=== PATIENT | female | born 1995 | race Two or more races ===

== ENCOUNTER 2017-02-16 17:08 | Observation (INO) | payer MEDICAID, OTHER ==
[2017-02-16] MEDS ORDERED: ONDANSETRON 4 MG/2 ML VIAL IVP ONE (17:45)
[2017-02-16] MEDS ORDERED: LR 1,000 ML IV SCH (18:00)
[2017-02-16 18:12] LABS: PLATELET COUNT 272 10^3/uL (150-400)
--- NOTE | 2017-02-16 19:11 | PDGENHP ---
History and Physical - Chief Complaint nausea, vomiting - History of Present Illness 21 yo G1 female @ 17.0 weeks gestation (EDC 07/28/17 by 10.0 week scan) presents with nausea and vomiting. She is unable to keep food down. She has been vomiting for a couple of days. She has required IVF hydration at ED several times during current for nausea and vomiting. Although she admits to using THC/marijuana prior to knowing she was she denies both excessive or any cannabis use since she knew she was . She currently takes Diclegis at home but has previously used B6, Zantac, Protonix Phenergan suppositories and PO Zofran. She has lost 7 pounds per /ACOG record. Her past medical history is unremarkable. has been complicated by GERD , hyperemesis and epigastric pain (especially during periods exacerbated by vomiting) but otherwise no problems. O+ / Antibody Screen Neg / RPR NR / Rubella NON-IMMUNE / HBsAg Neg / HIV Neg / Alpha Thalessemia Carrier / Pap WNL / Toxo IgG/IgM Neg / Initial Urine Drug Screen NEGATIVE / Pap WNL / GC Neg/Neg / cfDNA Negative, XX. History Information - Allergies/Home Medication List Allergies/Adverse Reactions: No Known Allergies Allergy (Unverified 02/16/17 17:23) I have personally reviewed and updated: family history, medical history, social history, surgical history - Past Medical History no pertinent PMH Additional medical history: RSV as a 3 month-old infant - Surgical History Reports: no pertinent surgical hx - Family History Additional family history: alcohol and drug abuse (brother and mother) - Social History Smoking Status: Former smoker Alcohol Use: Other (not since ) Drug Use: Marijuana Additional social history: not since Review of Systems Review of Systems: ROS: 10pt was reviewed & negative except for what was stated in HPI & below Physical Exam Physical Exam: Constitutional: uncomfortable Ears, Nose, Mouth, Throat: dry mucous membranes Cardiovascular: regular rate and rhythym, pulses symmetric bilaterally Respiratory: no respiratory distress, no rales or rhonchi, clear to auscultation Gastrointestinal: normoactive bowel sounds, soft, non-tender abdomen, other ( gravid, size less than dates) Musculoskeletal: generalized weakness Neurologic: AAOx3, sensation intact bilaterally Psychiatric: interacting appropriately, flat affect Lab Data & Imaging Review 02/16/17 17:50 02/16/17 17:50 WBC 14.04 10^3/uL (3.80-9.50) H 02/16/17 17:50 RBC 5.02 10^6/uL (4.18-5.33) 02/16/17 17:50 Hgb 13.6 g/dL (12.6-16.3) 02/16/17 17:50 Hct 41.2 % (38.0-47.0) 02/16/17 17:50 MCV 82.1 fL (81.5-99.8) 02/16/17 17:50 MCH 27.1 pg (27.9-34.1) L 02/16/17 17:50 MCHC 33.0 g/dL (32.4-36.7) 02/16/17 17:50 RDW 15.0 % (11.5-15.2) 02/16/17 17:50 Plt Count 272 10^3/uL (150-400) 02/16/17 17:50 MPV 10.3 fL (8.7-11.7) 02/16/17 17:50 Neut % (Auto) 86.1 % (39.3-74.2) H 02/16/17 17:50 Lymph % (Auto) 10.4 % (15.0-45.0) L 02/16/17 17:50 [place] % (Auto) 3.0 % (4.5-13.0) L 02/16/17 17:50 Eos % (Auto) 0.1 % (0.6-7.6) L 02/16/17 17:50 Baso % (Auto) 0.1 % (0.3-1.7) L 02/16/17 17:50 Nucleat RBC Rel Count 0.0 % (0.0-0.2) 02/16/17 17:50 Absolute Neuts (auto) 12.09 10^3/uL (1.70-6.50) H 02/16/17 17:50 Absolute Lymphs (auto) 1.46 10^3/uL (1.00-3.00) 02/16/17 17:50 Absolute Monos (auto) 0.42 10^3/uL (0.30-0.80) 02/16/17 17:50 Absolute Eos (auto) 0.01 10^3/uL (0.03-0.40) L 02/16/17 17:50 Absolute Basos (auto) 0.02 10^3/uL (0.02-0.10) 02/16/17 17:50 Absolute Nucleated RBC 0.00 10^3/uL (0-0.01) 02/16/17 17:50 Immature Gran % 0.3 % (0.0-1.1) 02/16/17 17:50 Immature Gran # 0.04 10^3/uL (0.00-0.10) 02/16/17 17:50 Sodium 137 mEq/L (134-144) 02/16/17 17:50 Potassium 4.1 mEq/L (3.5-5.2) 02/16/17 17:50 Chloride 102 mEq/L (97-110) 02/16/17 17:50 Carbon Dioxide 18 mEq/l (22-31) L 02/16/17 17:50 Anion Gap 17 mEq/L (8-16) H 02/16/17 17:50 BUN 4 mg/dL (7-23) L 02/16/17 17:50 Creatinine 0.5 mg/dL (0.6-1.0) L 02/16/17 17:50 Estimated GFR > 60 02/16/17 17:50 Glucose 129 mg/dL (70-100) H 02/16/17 17:50 Calcium 10.1 mg/dL (8.5-10.4) 02/16/17 17:50 Total Bilirubin 0.4 mg/dL (0.1-1.4) 02/16/17 17:50 AST 30 IU/L (14-46) 02/16/17 17:50 ALT 51 IU/L (9-52) 02/16/17 17:50 Alkaline Phosphatase 74 IU/L (38-126) 02/16/17 17:50 Total Protein 7.3 g/dL (6.3-8.2) 02/16/17 17:50 Albumin 4.2 g/dL (3.5-5.0) 02/16/17 17:50 TSH 0.071 uIU/mL (0.465-4.680) L 02/16/17 17:50 Assessment & Plan Assessment: 21 year-old G1 female @ 17 weeks gestation with hyperemesis gravidarum and epigastric pain. Plan: 1. Admit for observation. 2. IVF hydration, replace electrolytes as needed. 3. Obtain lab work. 4. Antiemetics. 5. Monitor epigastric pain, further work-up if persists or does not resolve. 6. Advance diet as tolerated.
[2017-02-16] MEDS: PROMETHAZINE HCL 25 MG/ML INJ IVP PRN (19:51)
[2017-02-16] MEDS ORDERED: METOCLOPRAMIDE 10 MG/2 ML VIAL ONE (21:52)
[2017-02-16] MEDS: D5W LR 1,000 ML IV SCH (21:58)
[2017-02-16] MEDS: METOCLOPRAMIDE 10 MG/2 ML VIAL IVP SCH (23:24)
[2017-02-17] MEDS: PROMETHAZINE HCL 25 MG/ML INJ IVP PRN ×2 (04:24→12:43)
[2017-02-17] MEDS: D5W LR 1,000 ML IV SCH ×2 (04:33→12:43)
[2017-02-17] MEDS: METOCLOPRAMIDE 10 MG/2 ML VIAL IVP SCH ×3 (06:29→14:05)
[2017-02-17] MEDS ORDERED: PRENATAL VIT 1 EACH TAB PO SCH (08:00)
--- NOTE | 2017-02-17 08:59 | SOAPPROG ---
SOAP Progress Note Assessment/Plan: Assessment: 21 yo G1 @ 17.1 weeks with hyperemesis gravidarum and epigastric pain. Alternated between vomiting and sleep overnight. Plan: Continue supportive care and encourage rest. Abdominal US for epigastric pain. Advance diet and activity as tolerated. 02/17/17 08:56 Subjective: Resting in bed. Says epigastric pain persists. Vomiting continues in spurts and then she has periods (1-2 hours) where she can sleep. She is cannot tolerate food or clears. Objective: Vital Signs Temp Pulse Resp BP Pulse Ox 37.2 C 95 14 125/79 H 97 02/17/17 04:30 02/17/17 04:30 02/17/17 04:30 02/17/17 04:30 02/17/17 04:30 Laboratory Results 02/16/17 17:50 02/16/17 17:50 NAD, resting HENT: moist mucous membranes Lungs: clear Heart: RRR Abdomen: soft, bowel sounds present, TTP in epigastrium and RUQ Extremities: no edema ICD10 Worksheet Patient Problems: Problems Problem Status Onset Hyperemesis gravidarum Acute - ICD10 Problem Qualifiers (1) Hyperemesis gravidarum
[2017-02-17] MEDS ORDERED: FAMOTIDINE 20 MG/NACL 50 ML IV SCH (09:45)
--- NOTE | 2017-02-17 11:52 | SOAPPROG ---
SOAP Progress Note Assessment/Plan: Assessment: 21 yo G1PO @ 17 1/7 weeks with hyperemesis gravidarum and epigastric pain Plan: Pt is stable at this time; her n/v has improved and pt is michael crackers Epigastric pain is improved after Pepcid; Abd u/s is wnl Continue supportive care Plan for d/c home later today if michael po 02/17/17 11:53 Subjective: Pt states n/v is improved and she is tolerating crackers. She has been up to shower and feels better. Denies any spotting or VB. Denies any cramping. Objective: Vital Signs Temp Pulse Resp BP Pulse Ox 37 C 109 H 18 127/67 H 98 02/17/17 09:41 02/17/17 09:41 02/17/17 09:41 02/17/17 09:41 02/17/17 09:41 Laboratory Results 02/16/17 17:50 02/16/17 17:50 02/16/17 02/17/17 02/18/17 05:59 05:59 05:59 Output Total 0 Balance 0 Physical Exam - Physical Exam General Appearance: WD/WN, alert, no apparent distress Abdomen: non-tender, soft Pelvic Exam: deferred Neuro/Psych: alert, normal mood/affect, oriented x 3 ICD10 Worksheet Patient Problems: Problems Problem Status Onset Hyperemesis gravidarum Acute
[2017-02-17 12:50] VITALS: BP 116/62; PULSE 83; RESP 16; TEMP 99; O2SAT 99
== END 2017-02-17 16:05 | disposition home or self-care (01) ==
LOC: FLD 17:08
PROVIDERS: ADMIT Advanced Practice Midwife; ATTEND Obstetrics & Gynecology
DX: O21.0 Mild hyperemesis gravidarum (principal); O99.612 Diseases of the digestive system complicating pregnancy, second trimester; K21.9 Gastro-esophageal reflux disease without esophagitis; F12.10 Cannabis abuse, uncomplicated; Z3A.17 17 weeks gestation of pregnancy
CPT/HCPCS: 76705; G0378; 80307; 84481-90; G0480; J1200; J2405; J2550; J2765

== ENCOUNTER 2017-02-18 19:51 | Inpatient (IN) | payer MEDICAID ==
[2017-02-18] MEDS ORDERED: PROMETHAZINE HCL 25 MG/ML INJ IVP PRN (20:08)
--- NOTE | 2017-02-18 20:21 | PDGENHP ---
History and Physical - Chief Complaint nausea, vomiting - History of Present Illness 21 yo G1 female @ 17.0 weeks gestation (EDC 07/28/17 by 10.0 week scan) presents with nausea and vomiting. She is unable to keep food down. She has been vomiting for a couple of days. She has required IVF hydration at ED several times during current for nausea and vomiting. She was admitted on Nov and was given IV antiemetics, IVF hydration, and responded positively. She called in this evening saying that although she was just recently discharged home she cannot keep anything down and is vomiting every hour. Although she admits to using THC/marijuana prior to knowing she was she denies both excessive or any cannabis use since she knew she was . She currently takes Phenergan suppositories Diclegis at home but has previously used B6, Zantac, Protonix and PO Zofran. She has lost 7 pounds per /ACOG record. Her past medical history is unremarkable. has been complicated by GERD , hyperemesis and epigastric pain (especially during periods exacerbated by vomiting) but otherwise no problems. O+ / Antibody Screen Neg / RPR NR / Rubella NON-IMMUNE / HBsAg Neg / HIV Neg / Alpha Thalessemia Carrier / Pap WNL / Toxo IgG/IgM Neg / Initial Urine Drug Screen NEGATIVE / Pap WNL / GC Neg/Neg / cfDNA Negative, XX. History Information - Allergies/Home Medication List Allergies/Adverse Reactions: No Known Allergies Allergy (Unverified 02/16/17 17:23) Home Medications: Zofran 02/01/17 [Last Taken Unknown] I have personally reviewed and updated: family history, medical history, social history, surgical history - Past Medical History no pertinent PMH Additional medical history: RSV as a 3 month-old - Surgical History Reports: no pertinent surgical hx - Family History Additional family history: alcohol and drug abuse (brother and mother) - Social History Smoking Status: Former smoker Additional social history: not since Review of Systems Review of Systems: ROS: 10pt was reviewed & negative except for what was stated in HPI & below Physical Exam Physical Exam: Constitutional: uncomfortable Ears, Nose, Mouth, Throat: dry mucous membranes Cardiovascular: regular rate and rhythym, no murmur, rub, or gallop Respiratory: no respiratory distress, clear to auscultation Gastrointestinal: soft, non-tender abdomen, other (gravid) Skin: warm Neurologic: AAOx3, sensation intact bilaterally Psychiatric: anxious Assessment & Plan Assessment: 21 year-old G1 female @ 17+ weeks gestation with hyperemesis gravidarum, second admission this week.. Plan: 1. Admit for observation. 2. IVF hydration, replace electrolytes as needed. 3. Obtain lab work. 4. Antiemetics. 5. GI prophylaxis. 6. Advance diet as tolerated.
[2017-02-18] MEDS: LR 1,000 ML IV PRN (20:32)
[2017-02-18] MEDS: ONDANSETRON 4 MG/2 ML VIAL IVP PRN (20:32)
[2017-02-18] MEDS: FAMOTIDINE 20 MG/NACL 50 ML IV SCH (20:33)
[2017-02-18 20:38] LABS: PLATELET COUNT 300 10^3/uL (150-400)
[2017-02-19] MEDS: ONDANSETRON 4 MG/2 ML VIAL IVP PRN ×4 (03:34→22:06)
[2017-02-19] MEDS: LR 1,000 ML IV PRN (03:35)
[2017-02-19] MEDS: FAMOTIDINE 20 MG/NACL 50 ML IV SCH ×2 (08:55→21:04)
[2017-02-19] MEDS: METOCLOPRAMIDE 10 MG/2 ML VIAL IVP SCH ×2 (10:50→19:37)
[2017-02-19] MEDS ORDERED: D5W LR 500 ML IV SCH (12:00)
[2017-02-19] MEDS: [UNRECOGNIZED DRUG - OTHER] IV SCH (12:02)
[2017-02-19] MEDS: MAGNESIUM SULFATE IV SCH (12:02)
[2017-02-19] MEDS: THIAMINE HCL IV SCH (12:02)
[2017-02-19] MEDS: POTASSIUM CL IV SCH (12:02)
--- NOTE | 2017-02-19 12:53 | SOAPPROG ---
SOAP Progress Note Assessment/Plan: Assessment: [id number] with IUP@ 17wks HEG Plan: cont IV fluids modified banana bag cont antiemetics 02/19/17 12:49 Subjective: Pt stable. reports still having n/v. She has been unable to keep anything down since 02/16/17. She states she is not having any pain. She denies any contractions/cramps, LOF, VB. She denies any FM. Her mother is present @ BS, supportive. Objective: Laboratory Results 02/18/17 20:15 02/18/17 20:15 - Time Spent With Patient Time Spent With Patient: approximately 45 min was spent with pt of which approx 30 min were face to face on counseling and coordination of care. Physical Exam - Physical Exam General Appearance: WD/WN, alert Neck: supple Respiratory: lungs clear, normal breath sounds Cardiac/Chest: regular rate, rhythm Abdomen: normal bowel sounds, non-tender, soft Pelvic Exam: deferred Rectal: deferred Skin: normal color, warm/dry Extremities: normal range of motion Neuro/Psych: alert, normal mood/affect, oriented x 3 ICD10 Worksheet Patient Problems: Problems Problem Status Onset Hyperemesis gravidarum Acute
[2017-02-20] MEDS: ONDANSETRON 4 MG/2 ML VIAL IVP PRN ×5 (01:18→20:56)
[2017-02-20] MEDS: METOCLOPRAMIDE 10 MG/2 ML VIAL IVP SCH ×5 (01:29→19:52)
[2017-02-20] MEDS: LR 1,000 ML IV PRN (03:40)
--- NOTE | 2017-02-20 08:26 | SOAPPROG ---
SOAP Progress Note Assessment/Plan: Assessment: 21-year-old G1 AAF HOD#3 admitted for dehydration and complications secondary to uncontrolled hyperemesis gravidarum. Plan: 1. Continue supportive care: IVF, IV antiemetics, IV multivitamins 2. Advance diet as tolerated. 3. Repeat CMP today, replace electrolytes PRN deficiencies. 02/20/17 08:21 02/20/17 08:26 Subjective: Nadiya and her mother report that she was able to tolerate small fluid diet yesterday (sips of smoothie) but had several bouts of nausea, vomiting and dry heaving last night and throughout the night. She is exhausted and feels defeated regarding this diagnosis and the ongoing nausea and vomiting. She is able to ambulate and void on her own. She is passing flatus. Objective: Laboratory Results 02/18/17 20:15 02/18/17 20:15 Physical Exam - Physical Exam General Appearance: alert, anxiety Neck: non-tender, supple Respiratory: lungs clear, normal breath sounds Cardiac/Chest: regular rate, rhythm Abdomen: normal bowel sounds, non-tender, soft Pelvic Exam: deferred Rectal: deferred Back: Normal inspection Skin: normal color, warm/dry Extremities: normal range of motion, non-tender, normal inspection Neuro/Psych: alert, oriented x 3, depressed affect ICD10 Worksheet Patient Problems: Problems Problem Status Onset Hyperemesis gravidarum Acute
[2017-02-20] MEDS ORDERED: D5W LR 1,000 ML IV SCH (08:30)
[2017-02-20] MEDS: FAMOTIDINE 20 MG/NACL 50 ML IV SCH ×2 (11:05→20:50)
[2017-02-20] MEDS: [UNRECOGNIZED DRUG - OTHER] IV SCH (12:05)
[2017-02-20] MEDS: POTASSIUM CL IV SCH (12:05)
[2017-02-20] MEDS: THIAMINE HCL IV SCH (12:05)
[2017-02-20] MEDS: MAGNESIUM SULFATE IV SCH (12:05)
[2017-02-20] MEDS: POTASSIUM Cl (KCl) 20 MEQ in D5W LR 1,000 ML IV SCH (19:52)
[2017-02-20] MEDS ORDERED: CALCIUM CARBONATE 500 MG CHEWABLE TAB PO PRN (20:46)
[2017-02-21] MEDS ORDERED: D5W LR 1,000 ML IV SCH (06:00)
[2017-02-21] MEDS ORDERED: PROTOCOL POTASSIUM 1 DOSE MISC PRN (07:16)
[2017-02-21] MEDS: METOCLOPRAMIDE 10 MG/2 ML VIAL IVP SCH ×4 (08:49→19:28)
[2017-02-21] MEDS: FAMOTIDINE 20 MG/NACL 50 ML IV SCH ×2 (09:07→21:01)
--- NOTE | 2017-02-21 09:34 | GCON ---
[f rep st] CONSULTATION HOSPITALIST CONSULTATION DATE OF CONSULTATION: 02/21/2017 REFERRING PHYSICIAN: Gorge Howard MD REASON FOR CONSULTATION: Hyperemesis gravidarum. CHIEF COMPLAINT: Nausea and vomiting. HISTORY OF PRESENT ILLNESS: This is a very pleasant, 21-year-old female, G1, at approximately 17 weeks, with no significant past medical history who presented to the emergency department for the 2nd time this week with complaints of intractable nausea and vomiting. Patient had been admitted for hyperemesis gravidarum. She had not quite achieved sustained p.o. challenge, and was discharged to home. Despite use of Phenergan suppositories, she continued to have persistent episodes of nausea and vomiting. Patient has struggled with hyperemesis throughout her . She reports 10-pound weight loss, records revealing 7-pound weight loss or possibly more over the course of her . Patient reports fatigue. No fevers, chills. Denies any hematemesis. No melena or hematochezia. No diarrhea. She does report intermittent flank pain, but no dysuria, hematuria, or urgency. REVIEW OF SYSTEMS: Negative, except as noted above. ALLERGIES: No known drug allergies. HOME MEDICATIONS: Zofran and Phenergan. CURRENT MEDICATIONS: Tums, D5 LR, Benadryl, famotidine, Reglan, Zofran, D5 KCl 20 mEq in LR, electrolyte replacement, Phenergan, banana bag. PAST MEDICAL HISTORY: Significant for hyperemesis gravidarum, otherwise negative. PAST SURGICAL HISTORY: Negative. FAMILY HISTORY: Mother and brother with history of alcohol and drug abuse more recently, brother is recently . Mother with kidney stones. No family history of thyroid or autoimmune issues. SOCIAL HISTORY: Patient quit smoking tobacco and marijuana prior to her . Was previously an occasional social drinker, but has not had any since . PHYSICAL EXAMINATION: VITAL SIGNS: Reported to be stable. Patient has been afebrile. Not available in the [facility]. GENERAL: No acute distress. Pleasant, young, adult female is lying quietly in bed. She does appear fatigued , but she is cooperative and pleasant. HEAD: Normocephalic, atraumatic. EYES : No conjunctival injection or drainage. ENT: Mucous membranes appear moist. No nasal discharge. CV: Regular rate and rhythm. No murmurs, rubs, or gallops appreciated. RESPIRATORY: Lungs clear to auscultation bilaterally. No wheezes, rales, or rhonchi. ABDOMEN: Soft, gravid abdomen. Nontender to palpation. : No suprapubic tenderness to palpation. No CVA tenderness. EXTREMITIES: No cyanosis, clubbing, or edema appreciated. NEURO: Grossly nonfocal. Moves all extremities. Sits up independently. MUSCULOSKELETAL: Moves all extremities. Property Utilization Officer strength grossly normal. PSYCHIATRIC: Affect is flat. Patient appears fatigued, but she is cooperative and appropriate. LABORATORY STUDIES: WBCs on 02/18/2017, 12.72, H and H 13.6 and 38.2, MCV 80.4 , neutrophil percent is 90.2, no bands. WBCs on 02/16/2017 were 14.04. Sodium is 136; potassium is 3.1, down from 3.5; chloride 106; CO2 is 20; anion gap 10, down from 17; BUN less than 2; creatinine 0.4; glucose is 79; calcium 8.3; total bili 0.6; ALT is 47; AST is 29; alk phos 48 total protein 5.2; albumin is 2.8. On 02/16/2017, TSH was drawn that was slightly decreased to 0.071. However, followup free T4, T3 were within normal limits. U-tox on 02/16/2017 was negative. ASSESSMENT AND PLAN: Pleasant 21-year-old, 1, at approximately 17 weeks and several days, who presents with hyperemesis gravidarum. Hospitalist consultation to assist with medical management. 1. Hyperemesis gravidarum. Patient received Reglan earlier in the day. She reports that her symptoms have seemed to subside, but has yet to trial a p.o. challenge, as she has failed previously. She has Zofran, Phenergan also available p.r.n. Case discussed with Dr. Howard and consideration for Compazine, use of Compazine class C for persistent symptoms. Agree with previous evaluation of TSH and thyroid studies which T3, T4 are normal. No evidence of LFT derangement, and patient is on appropriate gastrointestinal prophylaxis. Patient does have a slight decrease in potassium, but no previous electrolyte abnormalities, so lower suspicion for any adrenal insufficiency, and replacement has already been ordered. We will go ahead and check electrolytes for the morning. Patient also did refer to intermittent episodes of flank pain. She has no previous history of kidney stones and no symptoms of urinary tract infection, but we will go ahead and check a UA. Agree with continuing IV fluid hydration and encouraging p.o. trial. Additionally, consideration for possibility of cannabinoid hyperemesis. However, patient has multiple urine toxicologies that are negative, and has stopped using marijuana since identifying . 2. Hypokalemia. Receiving replacement. We will continue to monitor. 3. Hypoglycemia. Accu-Cheks added p.r.n. She is currently on D5. 4. Leukocytosis. Patient has remained afebrile. This is likely reactive in setting of hyperemesis gravidarum. We will plan to recheck a CBC this morning. She has no left shift, and she is afebrile, and we will go ahead and check a UA. 5. Previous anion gap likely related to dehydration has now resolved with IV fluids. 6. Fluid, electrolyte, nutrition. Patient on D5 LR with 20 of K. Repeat electrolytes as above. Diet advanced as tolerated, already ordered. 7. Prophylaxis: Patient already on H2 isrrael, and ambulation encouraged. Thank you for consultation. We will follow up. /[id number]/MODL MTDD
[2017-02-21 10:06] LABS: PLATELET COUNT 280 10^3/uL (150-400)
--- NOTE | 2017-02-21 10:23 | SOAPPROG ---
SOAP Progress Note Assessment/Plan: Assessment:fhr wnl intermittantly vs wnl small frequent things to eat throughout the day denies leaking bleeding and cramping feeling better today nausea still present but better. Plan: observe, reevaluate 02/21/17 10:18 Subjective: doing better since being here in the hospital. states she fels the pepcid is what is assisting her. Denies that she feels that any one thing has made things better. Still feeling nauseous. has not vomited today. Objective: Laboratory Results 02/21/17 09:50 Physical Exam - Physical Exam General Appearance: WD/WN, alert, no apparent distress Respiratory: chest non-tender, lungs clear, normal breath sounds Cardiac/Chest: regular rate, rhythm Abdomen: normal bowel sounds Skin: normal color, warm/dry Extremities: normal range of motion, Luis's sign (negative bilaterally) Neuro/Psych: no motor/sensory deficits, alert, normal mood/affect, oriented x 3 ICD10 Worksheet Patient Problems: Problems Problem Status Onset Hyperemesis gravidarum Acute
--- NOTE | 2017-02-21 13:06 | HOSPPROG ---
Hospitalist Progress Note Assessment/Plan: Hyperemesis gravidarum - cont supportive care, anti-emetics per OB service Hypokalemia - likely due to GI losses from N/V -replace, follow Hypoglycemia - bg's stable here, cont D5 until able to take po Leukocytosis - likely reactive in setting of N/V, now resolved FEN - on D5LR, Dispo - cont inpt, dispo per OB service Subjective: Pt feels better. She is tolerating sprite and oranges. No fevers. No abdominal pain. Objective: Laboratory Results 02/21/17 09:50 02/21/17 09:50 - Physical Exam Constitutional: no apparent distress Eyes: PERRL Ears, Nose, Mouth, Throat: moist mucous membranes Cardiovascular: regular rate and rhythym Respiratory: no respiratory distress, no rales or rhonchi Gastrointestinal: normoactive bowel sounds, soft, non-tender abdomen Skin: warm Musculoskeletal: full muscle strength Neurologic: AAOx3 Psychiatric: interacting appropriately ICD10 Worksheet Patient Problems: Problems Problem Status Onset Hyperemesis gravidarum Acute
[2017-02-21] MEDS: POTASSIUM Cl (KCl) 20 MEQ in D5W LR 1,000 ML IV SCH (15:25)
[2017-02-21] MEDS: ONDANSETRON 4 MG/2 ML VIAL IVP PRN (15:33)
[2017-02-21] MEDS ORDERED: EPSOM SALT 454 GM TP PRN (19:44)
[2017-02-21] MEDS: POTASSIUM Cl (KCl) 100 ML IV SCH ×4 (19:59→23:13)
--- NOTE | 2017-02-21 20:49 | SOAPPROG ---
SOAP Progress Note Assessment/Plan: Assessment: 21 yo g1 at 17 w 4 d with hyperemesis Plan: continued iv meds and hydration home health care consult tomorrow 02/21/17 20:48 Subjective: patient is doing ok. feeling better but not great. ate a banana earlier then vomiting. since then had some sprite. Objective: Vital Signs Temp Pulse Resp BP Pulse Ox 37.2 C 89 14 116/57 L 02/21/17 17:00 02/21/17 17:00 02/21/17 17:00 02/21/17 17:00 Laboratory Results 02/21/17 09:50 02/21/17 18:05 02/20/17 02/21/17 02/22/17 05:59 05:59 05:59 Intake Total 1575 Output Total 1100 Balance 475 Physical Exam - Physical Exam General Appearance: WD/WN, alert, no apparent distress Respiratory: chest non-tender, lungs clear, normal breath sounds Cardiac/Chest: normal peripheral pulses, regular rate, rhythm Abdomen: normal bowel sounds, non-tender, soft, other (gravid) Skin: normal color, warm/dry Extremities: normal range of motion, non-tender, normal inspection, normal capillary refill Neuro/Psych: no motor/sensory deficits, alert, normal mood/affect, oriented x 3 ICD10 Worksheet Patient Problems: Problems Problem Status Onset Hyperemesis gravidarum Acute
[2017-02-22] MEDS: POTASSIUM Cl (KCl) 20 MEQ in D5W LR 1,000 ML IV SCH (00:41)
[2017-02-22] MEDS: METOCLOPRAMIDE 10 MG/2 ML VIAL IVP SCH ×2 (02:07→08:01)
[2017-02-22 06:11] VITALS: RESP 16
[2017-02-22] MEDS: FAMOTIDINE 20 MG/NACL 50 ML IV SCH (09:15)
[2017-02-22] MEDS ORDERED: diphenhydrAMINE 25 MG CAP PO PRN (13:56)
[2017-02-22] MEDS ORDERED: ONDANSETRON DISINTEGRATING 4 MG TAB PO PRN (13:58)
[2017-02-22] MEDS ORDERED: PROMETHAZINE HCL 25 MG TAB PO PRN (13:59)
[2017-02-22] MEDS: METOCLOPRAMIDE 10 MG TAB PO SCH ×2 (14:23→20:42)
--- NOTE | 2017-02-22 14:40 | SOAPPROG ---
SOAP Progress Note Assessment/Plan: Assessment: HD 4, IUP at 17wks with hyperemesis improved on Reglan and pepcid. increasing intake potasium normalized Plan: changing to po meds today and encouraging fluids 02/22/17 14:33 Subjective: Pt doing well - much better today. tolerating po yogurt, mashed potatoes, and cookies. Had toast and cantalope this am. No nausea today and happy today and encouraged to think about foods. Objective: Vital Signs Temp Pulse Resp BP Pulse Ox 36.6 C 79 16 107/67 02/22/17 07:20 02/22/17 07:20 02/22/17 07:20 02/22/17 07:20 Laboratory Results 02/21/17 09:50 02/22/17 05:55 02/21/17 02/22/17 02/23/17 05:59 05:59 05:59 Intake Total 1575 Output Total 1100 Balance 475 FHTs 140s - spot checks q shifts ICD10 Worksheet Patient Problems: Problems Problem Status Onset Hyperemesis gravidarum Acute
[2017-02-22] MEDS ORDERED: LR 1,000 ML IV SCH (15:30)
[2017-02-22] MEDS: MAGNESIUM SULFATE IV SCH (17:05)
[2017-02-22] MEDS: [UNRECOGNIZED DRUG - OTHER] IV SCH (17:05)
[2017-02-22] MEDS: POTASSIUM CL IV SCH (17:05)
[2017-02-22] MEDS: THIAMINE HCL IV SCH (17:05)
--- NOTE | 2017-02-22 17:42 | HOSPPROG ---
Hospitalist Progress Note Assessment/Plan: Hyperemesis gravidarum - improved, tolerating po today. cont supportive care, anti-emetics per OB service Hypokalemia - likely due to GI losses from N/V -replace, follow Hypoglycemia - bg's stable here Leukocytosis - likely reactive in setting of N/V, now resolved FEN - on D5LR Dispo - cont inpt, dispo per OB service Subjective: Pt up in bed, conversive. Doing better. Tolerating po today. Ordered some food for dinner. Possible dc in am. Objective: Vital Signs Temp Pulse Resp BP Pulse Ox 36.6 C 79 16 107/67 02/22/17 07:20 02/22/17 07:20 02/22/17 07:20 02/22/17 07:20 Laboratory Results 02/21/17 09:50 02/22/17 05:55 02/21/17 02/22/17 02/23/17 05:59 05:59 05:59 Intake Total 1575 Output Total 1100 Balance 475 - Physical Exam Constitutional: no apparent distress Eyes: PERRL Ears, Nose, Mouth, Throat: moist mucous membranes Cardiovascular: regular rate and rhythym Respiratory: no respiratory distress, clear to auscultation Gastrointestinal: normoactive bowel sounds, soft, non-tender abdomen Skin: warm Musculoskeletal: full muscle strength Neurologic: AAOx3 Psychiatric: interacting appropriately ICD10 Worksheet Patient Problems: Problems Problem Status Onset Hyperemesis gravidarum Acute
--- NOTE | 2017-02-22 17:56 | ASMTCASEMG ---
Living Arrangements What is your living Answers: With One Parent arrangement? Who do you live with? Type Of Residence What kind of residence do Answers: House you live in? Case Management Evaluation Functional: Able to Answers: Yes return Home with Prior Level of Function/Care Psychosocial Needs: Answers: Other Psychosocial Notes: Patient grieving the lo ss Problem/Need of her brother in September. Education Needs Answers: Parenting Education Notes: Referral to nurse ramses bustos, [place] Other Problem or Notes: grief group at [facility] Educational Need Discharge Plan Comments Coordination Status Comments Notes: Saw patient at request of patients RN. Spoke at [facility] about the of her brother in a fall this past September. She states that as a family they have not talked about her bothers . She says that her mother had started going to a grief group and patient had planned to start the week she was admitted to the hospital for hyperemesis. She said she feels that some of the physical symptoms are related to her grief. Discussed her and resources available to support her in her . She said that she is signed up with [facility] and is open to a referral to [facility]. Application was filled out together and faxed to Symone Owens, director of the program. Offered support for other resources as her progresses should she desire it. Case Management will continue to follow her . Date Signed: 02/22/2017 05:55 PM Electronically Signed By:BLANCA Alfaro
--- NOTE | 2017-02-22 17:56 | ASMTCASEMG ---
Living Arrangements What is your living Answers: With One Parent arrangement? Who do you live with? Type Of Residence What kind of residence do Answers: House you live in? Case Management Evaluation Functional: Able to Answers: Yes return Home with Prior Level of Function/Care Psychosocial Needs: Answers: Other Psychosocial Notes: Patient grieving the lo ss Problem/Need of her brother in September. Education Needs Answers: Parenting Education Notes: Referral to nurse ramses bustos, [place] Other Problem or Notes: grief group at [facility] Educational Need Discharge Plan Comments Coordination Status Comments Notes: Saw patient at request of patients RN. Spoke at [facility] about the of her brother in a fall this past September. She states that as a family they have not talked about her bothers . She says that her mother had started going to a grief group and patient had planned to start the week she was admitted to the hospital for hyperemesis. She said she feels that some of the physical symptoms are related to her grief. Discussed her and resources available to support her in her . She said that she is signed up with [facility] and is open to a referral to [facility]. Application was filled out together and faxed to Symone Owens, director of the program. Offered support for other resources as her progresses should she desire it. Case Management will continue to follow her . Date Signed: 02/22/2017 05:55 PM Electronically Signed By:BLANCA Alfaro
--- NOTE | 2017-02-22 17:56 | ASMTCASEMG ---
Living Arrangements What is your living Answers: With One Parent arrangement? Who do you live with? Type Of Residence What kind of residence do Answers: House you live in? Case Management Evaluation Functional: Able to Answers: Yes return Home with Prior Level of Function/Care Psychosocial Needs: Answers: Other Psychosocial Notes: Patient grieving the lo ss Problem/Need of her brother in September. Education Needs Answers: Parenting Education Notes: Referral to nurse ramses bustos, [place] Other Problem or Notes: grief group at [facility] Educational Need Discharge Plan Comments Coordination Status Comments Notes: Saw patient at request of patients RN. Spoke at [facility] about the of her brother in a fall this past September. She states that as a family they have not talked about her bothers . She says that her mother had started going to a grief group and patient had planned to start the week she was admitted to the hospital for hyperemesis. She said she feels that some of the physical symptoms are related to her grief. Discussed her and resources available to support her in her . She said that she is signed up with [facility] and is open to a referral to [facility]. Application was filled out together and faxed to Symone Owens, director of the program. Offered support for other resources as her progresses should she desire it. Case Management will continue to follow her . Date Signed: 02/22/2017 05:55 PM Electronically Signed By:BLANCA Alfaro
[2017-02-22] MEDS: FAMOTIDINE 20 MG TAB PO SCH (20:42)
[2017-02-23] MEDS: METOCLOPRAMIDE 10 MG TAB PO SCH ×2 (05:59→11:51)
[2017-02-23] MEDS: FAMOTIDINE 20 MG TAB PO SCH (09:01)
[2017-02-23] MEDS: MAGNESIUM SULFATE IV SCH (09:02)
[2017-02-23] MEDS: [UNRECOGNIZED DRUG - OTHER] IV SCH (09:02)
[2017-02-23] MEDS: THIAMINE HCL IV SCH (09:02)
[2017-02-23] MEDS: POTASSIUM CL IV SCH (09:02)
[2017-02-23 09:04] VITALS: BP 115/65; PULSE 77; TEMP 99
--- NOTE | 2017-02-23 12:19 | SOAPPROG ---
SOAP Progress Note Assessment/Plan: Assessment: hospital day 4 21 yo g1 at 17 w 6 d with hyperemesis reassuring status Plan: continued po meds and hydration discharge instructions geriatric social worker consult 02/23/17 12:19 Subjective: patient is doing much better. met with geriatric social worker this am. given additional resources. able to tolerate po hydration and meds. tolerating diet. denies cramping, vaginal bleeding or loss of fluid. ready to go home. Objective: Vital Signs Temp Pulse Resp BP Pulse Ox 37.2 C 77 16 115/65 02/23/17 09:03 02/23/17 09:03 02/23/17 09:03 02/23/17 09:03 Laboratory Results 02/21/17 09:50 02/23/17 05:50 02/22/17 02/23/17 02/24/17 05:59 05:59 05:59 Intake Total 1575 2200 Output Total 1100 0 Balance 475 2200 Physical Exam - Physical Exam General Appearance: WD/WN, alert, no apparent distress Neck: non-tender, full range of motion, supple Respiratory: chest non-tender, lungs clear, normal breath sounds Cardiac/Chest: normal peripheral pulses, regular rate, rhythm Abdomen: normal bowel sounds, non-tender, soft, other (gravid) Skin: normal color, warm/dry Extremities: normal range of motion, non-tender, normal inspection, normal capillary refill Neuro/Psych: no motor/sensory deficits, alert, normal mood/affect ICD10 Worksheet Patient Problems: Problems Problem Status Onset Hyperemesis gravidarum Acute
--- NOTE | 2017-02-23 12:19 | SOAPPROG ---
SOAP Progress Note Assessment/Plan: Assessment: hospital day 4 21 yo g1 at 17 w 6 d with hyperemesis reassuring status Plan: continued po meds and hydration discharge instructions social media strategist consult 02/23/17 12:19 Subjective: patient is doing much better. met with social media strategist this am. given additional resources. able to tolerate po hydration and meds. tolerating diet. denies cramping, vaginal bleeding or loss of fluid. ready to go home. Objective: Vital Signs Temp Pulse Resp BP Pulse Ox 37.2 C 77 16 115/65 02/23/17 09:03 02/23/17 09:03 02/23/17 09:03 02/23/17 09:03 Laboratory Results 02/21/17 09:50 02/23/17 05:50 02/22/17 02/23/17 02/24/17 05:59 05:59 05:59 Intake Total 1575 2200 Output Total 1100 0 Balance 475 2200 Physical Exam - Physical Exam General Appearance: WD/WN, alert, no apparent distress Neck: non-tender, full range of motion, supple Respiratory: chest non-tender, lungs clear, normal breath sounds Cardiac/Chest: normal peripheral pulses, regular rate, rhythm Abdomen: normal bowel sounds, non-tender, soft, other (gravid) Skin: normal color, warm/dry Extremities: normal range of motion, non-tender, normal inspection, normal capillary refill Neuro/Psych: no motor/sensory deficits, alert, normal mood/affect ICD10 Worksheet Patient Problems: Problems Problem Status Onset Hyperemesis gravidarum Acute
--- NOTE | 2017-02-23 12:19 | SOAPPROG ---
SOAP Progress Note Assessment/Plan: Assessment: hospital day 4 21 yo g1 at 17 w 6 d with hyperemesis reassuring status Plan: continued po meds and hydration discharge instructions social media content manager consult 02/23/17 12:19 Subjective: patient is doing much better. met with social media content manager this am. given additional resources. able to tolerate po hydration and meds. tolerating diet. denies cramping, vaginal bleeding or loss of fluid. ready to go home. Objective: Vital Signs Temp Pulse Resp BP Pulse Ox 37.2 C 77 16 115/65 02/23/17 09:03 02/23/17 09:03 02/23/17 09:03 02/23/17 09:03 Laboratory Results 02/21/17 09:50 02/23/17 05:50 02/22/17 02/23/17 02/24/17 05:59 05:59 05:59 Intake Total 1575 2200 Output Total 1100 0 Balance 475 2200 Physical Exam - Physical Exam General Appearance: WD/WN, alert, no apparent distress Neck: non-tender, full range of motion, supple Respiratory: chest non-tender, lungs clear, normal breath sounds Cardiac/Chest: normal peripheral pulses, regular rate, rhythm Abdomen: normal bowel sounds, non-tender, soft, other (gravid) Skin: normal color, warm/dry Extremities: normal range of motion, non-tender, normal inspection, normal capillary refill Neuro/Psych: no motor/sensory deficits, alert, normal mood/affect ICD10 Worksheet Patient Problems: Problems Problem Status Onset Hyperemesis gravidarum Acute
== END 2017-02-23 17:00 | disposition home or self-care (01) | DRG 781 ==
LOC: FLD 19:51 → OBSVTOIN 02-19 13:32 → FLD 02-20 11:23
PROVIDERS: ADMIT Obstetrics & Gynecology Gynecology; ATTEND Obstetrics & Gynecology Gynecology
DX: O21.1 Hyperemesis gravidarum with metabolic disturbance (principal); Z3A.17 17 weeks gestation of pregnancy; O99.282 Endocrine, nutritional and metabolic diseases complicating pregnancy, second trimester; E16.2 Hypoglycemia, unspecified
CPT/HCPCS: G0378; J1200; J2405; J2550; J2765; J3411; J3415

== ENCOUNTER 2017-02-28 13:46 | Inpatient (IN) | payer MEDICAID ==
[2017-02-28] MEDS ORDERED: ONDANSETRON 4 MG/2 ML VIAL IVP ONE (14:45)
[2017-02-28] MEDS ORDERED: LR 1,000 ML IV ONE (15:00)
[2017-02-28] MEDS ORDERED: FAMOTIDINE 20 MG/NACL 50 ML IV ONE (16:12)
[2017-02-28] MEDS ORDERED: METOCLOPRAMIDE 10 MG/2 ML VIAL IVP ONE (16:12)
--- NOTE | 2017-02-28 16:26 | SOAPPROG ---
SOAP Progress Note Assessment/Plan: Assessment:nausea and vomiting for 24h unable to eat or drink today states has not taken medication at all aunt states patient is unable to work states mother of patient also just in bed all day discussed ways to get through this time occupational therapy psychological therapy nursing home social worker natural ways to assist with nausea and vomiting Plan:iv fluids , medications, regular diet, small easily eaten meals 02/28/17 16:26 Subjective: Flat affect. Family member, Aunt of the patient came and talked to me to say this patients brother resently of a head injury. Mom and patient devastated and grieving. When patient is vomiting will not eat, or drink. Physical Exam - Physical Exam General Appearance: WD/WN, alert, no apparent distress Respiratory: chest non-tender, lungs clear, normal breath sounds Cardiac/Chest: regular rate, rhythm Abdomen: normal bowel sounds Skin: normal color, warm/dry Extremities: normal range of motion, Luis's sign (negative bilaterally) Neuro/Psych: no motor/sensory deficits, alert, normal mood/affect, oriented x 3 ICD10 Worksheet Patient Problems: Problems Problem Status Onset Hyperemesis gravidarum Acute
[2017-02-28 18:00] LABS: % IMMATURE GRANULYOCYTES 0.3 % (0.0-1.1); ABSOLUTE IMMATURE GRANULOCYTES 0.04 10^3/uL (0.00-0.10); ADD DIFF? NO; ADD MORPH? NO; ADD SCAN? NO; ATYPICAL LYMPHOCYTE FLAG 0 (0-99); FRAGMENT RBC FLAG 0 (0-99); HEMATOCRIT 38.9 % (38.0-47.0); HEMOGLOBIN 13.3 g/dL (12.6-16.3); LEFT SHIFT FLG 0 (0-99); LIPEMIA HEMOLYSIS FLAG 90 (0-99); MEAN CELL HEMOGLOBIN 27.8 pg (27.9-34.1); MEAN CELL HEMOGLOBIN CONCENTR. 34.2 g/dL (32.4-36.7); MEAN CELL VOLUME 81.2 fL (81.5-99.8); MEAN PLATELET VOLUME 10.2 fL (8.7-11.7); PLATELET CLUMPS FLAG 20 (0-99); PLATELET COUNT 368 10^3/uL (150-400); RED BLOOD CELL COUNT 4.79 10^6/uL (4.18-5.33); RED CELL DISTRIBUTION WIDTH 15.8 % (11.5-15.2)
[2017-02-28 18:13] LABS: ALANINE AMINOTRANSFERASE 35 IU/L (9-52); ALBUMIN 4.1 g/dL (3.5-5.0); ALKALINE PHOSPHATASE 75 IU/L (38-126); ANION GAP 15 mEq/L (8-16); ASPARTATE AMINOTRANSFERASE 25 IU/L (14-46); BILIRUBIN,TOTAL 0.4 mg/dL (0.1-1.4); CALCIUM 9.7 mg/dL (8.5-10.4); CARBON DIOXIDE 21 mEq/l (22-31); CHLORIDE 100 mEq/L (97-110); CREATININE 0.5 mg/dL (0.6-1.0); GLOMERULAR FILTRATION RATE > 60; GLUCOSE 76 mg/dL (70-100); SODIUM 136 mEq/L (134-144); TOTAL PROTEIN 6.8 g/dL (6.3-8.2)
[2017-02-28] MEDS: METOCLOPRAMIDE 10 MG TAB PO SCH (21:03)
[2017-02-28] MEDS: FAMOTIDINE 20 MG TAB PO SCH (21:03)
[2017-02-28] MEDS: ONDANSETRON DISINTEGRATING 4 MG TAB PO PRN (21:03)
[2017-02-28 21:08] VITALS: RESP 16; O2SAT 97
[2017-03-01] MEDS: METOCLOPRAMIDE 10 MG TAB PO SCH ×2 (06:27→11:30)
[2017-03-01] MEDS: ONDANSETRON DISINTEGRATING 4 MG TAB PO PRN (06:28)
[2017-03-01 07:33] VITALS: TEMP 98.6
[2017-03-01] MEDS: FAMOTIDINE 20 MG TAB PO SCH (08:41)
[2017-03-01 11:29] VITALS: BP 104/62; PULSE 88
--- NOTE | 2017-03-01 16:08 | ASMTCASEMG ---
Living Arrangements What is your living Answers: With One Parent arrangement? Who do you live with? Type Of Residence What kind of residence do Answers: House you live in? Case Management Evaluation Functional: Able to Answers: Yes return Home with Prior Level of Function/Care Psychosocial Needs: Answers: Other Psychosocial Notes: grief work following Problem/Need accidental of brother. Discharge Plan Comments Coordination Status Comments Notes: Saw patient as follow up to visit last week when she was here. We again discussed patient grief around loss of her brother in September. Previously patient had said she was going to go to grief support group through [facility] grief services. She said her mother has previously gone and she intends to go and will call. Discussed how patient handles her anxiety and grief or how she has managed these types of emotions in the past. 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 She plans to follow up with this when she goes home. She reports that her boyfriend is currently working in [place] and though they dont get to see each other as often as she would like they do get along well. Patient said she has yet to hear from [facility] so I will call again since referral was made during last hospitalization. Case management will continue to follow. Date Signed: 03/01/2017 04:08 PM Electronically Signed By:BLANCA Alfaro
--- NOTE | 2017-03-01 16:56 | SOAPPROG ---
SOAP Progress Note Assessment/Plan: Assessment: 21 yo AAF G1 @ 18.5 weeks with complicated by hyperemesis gravidarum and depression. Denies significant symptoms today. Desires DC home. (Late Entry Note) Plan: 1. Social Work consult today. 2. DC home. 3. Follow-up on 03/03/17 @ [facility] for scheduled visit. 03/01/17 16:52 Subjective: Very good disposition today. Happy. Eating. Reports only one episode of N/V ( mild) overnight, near admission. Objective: Vital Signs Temp Pulse Resp BP Pulse Ox 37 C 88 16 104/62 97 03/01/17 11:28 03/01/17 11:28 03/01/17 11:28 03/01/17 11:28 03/01/17 06:25 Laboratory Results 02/28/17 14:36 02/28/17 14:36 FHT confirmed Physical Exam - Physical Exam General Appearance: alert, no apparent distress Neck: supple Respiratory: lungs clear, normal breath sounds Cardiac/Chest: normal peripheral pulses, regular rate, rhythm Abdomen: normal bowel sounds, non-tender, soft Pelvic Exam: deferred Rectal: deferred Skin: normal color, warm/dry Extremities: normal range of motion, non-tender, normal inspection Neuro/Psych: no motor/sensory deficits, alert, normal mood/affect, oriented x 3 ICD10 Worksheet Patient Problems: Problems Problem Status Onset Hyperemesis gravidarum Acute
--- NOTE | 2017-03-01 17:18 | PDDCSUM ---
Discharge Summary Discharge Summary: DATE OF ADMISSION: 02/28/2017 DATE OF DISCHARGE: 03/01/2017 ADMITTING DIAGNOSES: 1. IUP @ 18.4 weeks gestation 2. Hyperemesis gravidarum, exacerbation 3. Major depression DISCHARGE DIAGNOSES: 1. IUP @ 18.5 weeks gestation 2. Hyperemesis gravidarum 3. Major depression ADMITTING PROVIDER: Sylwia Gonzalez CNM DISCHARGING PROVIDER: Tee Howard MD HISTORY OF PRESENT ILLNESS/HOSPITAL COURSE: The patient is a 21-year-old female G1 who was admitted yesterday to the [facility] Labor deck @ 18.5 weeks gestation out of concern for an exacerbation of her known hyperemesis gravidarum. She has been to ED and admitted several times for HEG. has also been complicated by major depression. Patient's brother earlier this year and she is having a difficult time dealing with this loss in the context of recurrent bouts of nausea and vomiting. Overnight patient did very well. By HD#2, patient was tolerating PO diet without nausea or vomiting and she was in relatively good spirits. She had a visit from mental health social worker. She is going to get connected with support for dealing with her depression following discharge. PROCEDURES PERFORMED: 1. IV Fluid Hydration, antiemetics, progression of diet as tolerated ( Supportive care for HEG). 2. Social Work Consult. COMPLICATIONS: None. DISCHARGE INSTRUCTIONS: Discharge home. DIET: Advance as tolerated. ACTIVITY: As tolerated. MEDICATIONS AND FOLLOWUP: Continue home medications (previously prescribed PO antiemetics). Follow-up at [facility] on 03/03/17 for scheduled care.
== END 2017-03-01 14:00 | disposition home or self-care (01) | DRG 781 ==
LOC: INTOOBSV 13:46 → FLD 13:46 → OBSVTOIN 03-01 11:00
PROVIDERS: ADMIT Advanced Practice Midwife; ATTEND Obstetrics & Gynecology Gynecology
DX: O21.0 Mild hyperemesis gravidarum (principal); O99.342 Other mental disorders complicating pregnancy, second trimester; F32.9 Major depressive disorder, single episode, unspecified; Z3A.18 18 weeks gestation of pregnancy
CPT/HCPCS: J2405; J2765

== ENCOUNTER 2017-07-03 11:03 | Inpatient (IN) | payer MEDICAID ==
[2017-07-03] MEDS ORDERED: MISOPROSTOL 200 MCG TAB PO PRN (12:55)
[2017-07-03] MEDS ORDERED: TERBUTALINE SULFATE 1 MG/ML VIAL IV PRN (12:55)
[2017-07-03] MEDS ORDERED: OLIVE OIL 118 ML BTL MISC PRN (12:55)
[2017-07-03] MEDS ORDERED: AMPICILLIN SODIUM 2 GM in STERILE WATER INJ 25 ML IV ONE (12:55)
[2017-07-03] MEDS ORDERED: EPSOM SALT 454 GM TP PRN (12:55)
[2017-07-03] MEDS ORDERED: OXYTOCIN 20 UNIT in LR 1,000 ML IV PRN (12:55)
[2017-07-03] MEDS ORDERED: AMMONIA AROMATIC 1 EACH AMP IH PRN (12:55)
[2017-07-03] MEDS ORDERED: IBUPROFEN 600 MG TAB PO PRN (12:55)
[2017-07-03] MEDS ORDERED: LR 1,000 ML IV PRN (12:55)
[2017-07-03] MEDS ORDERED: BETAMETHASONE IM SYRINGE IM ONE (13:45)
[2017-07-03 14:04] LABS: PLATELET COUNT 247 10^3/uL (150-400)
--- NOTE | 2017-07-03 16:39 | PDGENHP ---
History and Physical - Chief Complaint gush of fluid - History of Present Illness 22 year old G1 at 36w3d by 10 week ultrasound dating had a gush of clear fluid at 1005 today. Good FM, no vaginal bleeding. She is feeling an occasional mild contraction. has been complicated by hyperemesis gravidarum and minimal weight gain (total of about 5 lbs). Good care throughout. Her mother is in attendance with her. FOC is aware but not actively involved. She is having a girl. PMH: alpha thalassemia carrier. FOC was tested and is negative. Pt is mixed - and . FOC is . Asthma as a child - has not used an inhaler in over a decade. PSH: none Soc: -/-/- since pos preg test. Per chart - hx of THC use prior to . Denies today. Had neg urine tox screen in first trimester. FamHx: noncontributory. MGF - HTN & dementia, MGM & MAunt with DM, brother in past year at age 19 - seizures and hx of drug abuse medications: vitamins labs: O pos, Ab screen neg, RPR - NR, HBsAG neg, HIV neg, Toxo IgG/IgM neg, pap neg, gonorrhea neg, chlamydia neg, AFP neg screen, NIPT/Innata neg, 1 hr GTT = 112, urine drug screen neg first trimester. h/h at 28 wk = 12.25/38.9, Non-Immune to Rubella. GBS pos O: 37.2 80 125/71 gen - pleasant female, NAD CV - RRR chest - CTAB abd -gravid, fundus soft and nontender ext - calves NT, trace edema FHR - 140 reactive, mod variability, + accels, no decels Brief Abd US done - cephalic presentation confirmed. IMP: 22 yo G1 at 36w3d with PROM, not in labor, GBS positive. PLAN: Options discussed. Society for MFM publication most recent recommends proceeding with Betamethasone for late status, and proceeding with starting cervical ripening at the same time. Pt is agreeable to plan of care. 1) Amp has been given 2) Betamethasone given 3) Will start IOL with 50mcg misoprostil po q 4 hours Chasidy Miguel MD, [facility] History Information - Allergies/Home Medication List Allergies/Adverse Reactions: No Known Allergies Allergy (Unverified 02/16/17 17:23) Home Medications: Zofran 02/01/17 [Last Taken Unknown] I have personally reviewed and updated: family history, medical history, social history, surgical history Past Medical History: alpha thalassemia carrier. asthma as a child - Past Medical History no pertinent PMH, asthma Additional medical history: RSV as a 3 month-old - Surgical History Reports: no pertinent surgical hx - Family History Positive for: diabetes type II Additional family history: alcohol and drug abuse (brother and mother) - Social History Smoking Status: Former smoker Tobacco Use: Cigarettes Alcohol Use: None Drug Use: Marijuana Additional social history: not since Review of Systems Review of Systems: Physical Exam Physical Exam: Lab Data & Imaging Review 07/03/17 13:50 WBC 10.74 10^3/uL (3.80-9.50) H 07/03/17 13:50 RBC 4.43 10^6/uL (4.18-5.33) 07/03/17 13:50 Hgb 11.8 g/dL (12.6-16.3) L 07/03/17 13:50 Hct 35.7 % (38.0-47.0) L 07/03/17 13:50 MCV 80.6 fL (81.5-99.8) L 07/03/17 13:50 MCH 26.6 pg (27.9-34.1) L 07/03/17 13:50 MCHC 33.1 g/dL (32.4-36.7) 07/03/17 13:50 RDW 13.6 % (11.5-15.2) 07/03/17 13:50 Plt Count 247 10^3/uL (150-400) 07/03/17 13:50 MPV 12.0 fL (8.7-11.7) H 07/03/17 13:50 Neut % (Auto) 75.1 % (39.3-74.2) H 07/03/17 13:50 Lymph % (Auto) 16.9 % (15.0-45.0) 07/03/17 13:50 Ashe % (Auto) 6.3 % (4.5-13.0) 07/03/17 13:50 Eos % (Auto) 0.7 % (0.6-7.6) 07/03/17 13:50 Baso % (Auto) 0.3 % (0.3-1.7) 07/03/17 13:50 Nucleat RBC Rel Count 0.0 % (0.0-0.2) 07/03/17 13:50 Absolute Neuts (auto) 8.06 10^3/uL (1.70-6.50) H 07/03/17 13:50 Absolute Lymphs (auto) 1.82 10^3/uL (1.00-3.00) 07/03/17 13:50 Absolute Monos (auto) 0.68 10^3/uL (0.30-0.80) 07/03/17 13:50 Absolute Eos (auto) 0.08 10^3/uL (0.03-0.40) 07/03/17 13:50 Absolute Basos (auto) 0.03 10^3/uL (0.02-0.10) 07/03/17 13:50 Absolute Nucleated RBC 0.00 10^3/uL (0-0.01) 07/03/17 13:50 Immature Gran % 0.7 % (0.0-1.1) 07/03/17 13:50 Immature Gran # 0.07 10^3/uL (0.00-0.10) 07/03/17 13:50 Membrane Rupture POSITIVE (NEGATIVE) H 07/03/17 11:50 Patient ABO/Rh O POSITIVE 07/03/17 13:50 Antibody Screen NEGATIVE 07/03/17 13:50
[2017-07-03] MEDS ORDERED: MISOPROSTOL 50 MCG CAP ONE (17:03)
[2017-07-03] MEDS: MISOPROSTOL 50 MCG CAP PO PRN (17:11)
[2017-07-03] MEDS ORDERED: LIDOCAINE 1% 300 MG/30 ML SDV ONE ×2 (17:24→17:25)
[2017-07-03] MEDS ORDERED: TERBUTALINE SULFATE 1 MG/ML VIAL ONE (17:24)
[2017-07-03] MEDS: AMPICILLIN SODIUM 1 GM in STERILE WATER INJ 15 ML IV SCH ×2 (17:53→21:39)
--- NOTE | 2017-07-03 21:43 | OBPROG ---
Labor Progress Note Assessment/Plan: Assessment: 22 yo G1 at 36w3d with PROM for nearly 12 hours, undergoing IOL, not in labor yet. GBS pos - receiving ampicillin, first dose was at 1400 Late - received one dose betamethasone at 1415 Plan:Observation for now, as is davis too much for another misoprostil. When starts to feel more discomfort, will do another cervical exam and decide upon next step - more ripening vs pitocin. Chasidy Miguel MD, [facility] 07/03/17 21:43 Subjective/Intrapartum Course: Pt is becoming mildly uncomfortable with contractions. Still leaking clear fluid. Desires epidural eventually for pain control. 07/03/17 21:42 Objective: 07/03/17 13:50 Patient ABO/Rh O POSITIVE 07/03/17 13:50 gen - pleasant, NAD - SVE Dilation (cm): 1 Effacement (%): 50 Station: -3 Amniotic Fluid Color: Clear - Contraction Pattern Assessment Current Contraction Pattern: Regular - FHR Assessment Kwon FHR Pattern Variability: Moderate FHR Category: 1 (reactive) - AP Antepartum Course: Antepartum course was complicated by hyperemesis gravidarum, which required numerous episodes of IV hydration. 07/03/17 21:40 - Physical Exam Estimated Weight: 2501-3400g Neck: full range of motion Oxytocin Orders Assessment - Pre-Induction/Augmentation Assessment Gestational Age: 36 week(s) and 3 day(s) ICD10 Worksheet Patient Problems: Problems Problem Status Onset premature rupture of membranes in third trimester Acute Hyperemesis gravidarum Acute - ICD10 Problem Qualifiers (1) premature rupture of membranes in third trimester
[2017-07-04] MEDS: MISOPROSTOL 50 MCG CAP PO PRN (00:02)
[2017-07-04] MEDS: AMPICILLIN SODIUM 1 GM in STERILE WATER INJ 15 ML IV SCH ×6 (01:05→23:36)
[2017-07-04] MEDS ORDERED: LR 500 ML IV PRN (05:02)
--- NOTE | 2017-07-04 05:09 | OBPROG ---
Labor Progress Note Assessment/Plan: Assessment: 22 yo G1 at 36w3d with PROM for nearly 12 hours, undergoing IOL, not in labor yet. GBS pos - receiving ampicillin, first dose was at 1400 Late - received one dose betamethasone at 1415 Plan:Observation for now, as is davis too much for another misoprostil. When starts to feel more discomfort, will do another cervical exam and decide upon next step - more ripening vs pitocin. Chasidy Miguel MD, [facility] 07/03/17 21:43 07/04/17 05:06 Assessment: 22 yo Gq at 36w4d with PROM for 19 hours now. No evidence of chorioamnionitis. Has received 2 doses of misoprostil. GBS positive - continue ampicillin Late - received one dose betameth at 1415 yesterday. Plan: Will start pitocin standard protocol. Continue amp. 2nd betameth at 1415 if not delivered. B/R/A of pitocin discussed, including C/S. Mutually agreed to proceed. Cephalic presentation was confirmed on admit. EFW 3200gm. Chasidy Miguel MD, F[facility]OG 07/04/17 05:14 Subjective/Intrapartum Course: Pt is becoming mildly uncomfortable with contractions. Still leaking clear fluid. Desires epidural eventually for pain control. 07/03/17 21:42 07/04/17 05:09 Pt more uncomfortable after the 2nd misoprostil was given around midnight. Contraction pain up to about a 4 of 10. Still leakin clear fluid. No other concerns. Objective: 07/03/17 13:50 Patient ABO/Rh O POSITIVE 07/03/17 13:50 98.6 vss abd - gravid, soft, NT when not davis SVE - tight 3 cm / 60% / -2 FHR 130 reactive, Cat 1 toco - q2-8 min - SVE Dilation (cm): 2, 3 Station: -2 Membranes: SROM Amniotic Fluid Color: Clear - Contraction Pattern Assessment Current Contraction Pattern: Regular, Irregular - FHR Assessment Kwon FHR (bpm): 130 FHR Pattern Variability: Moderate FHR Category: 1 - AP Antepartum Course: Antepartum course was complicated by hyperemesis gravidarum, which required numerous episodes of IV hydration. 07/03/17 21:40 - Physical Exam Estimated Weight: 2501-3400g Oxytocin Orders Assessment - Pre-Induction/Augmentation Assessment Gestational Age: 36 week(s) and 3 day(s) Estimated Weight: 2501-3400g ICD10 Worksheet Patient Problems: Problems Problem Status Onset premature rupture of membranes in third trimester Acute Hyperemesis gravidarum Acute - ICD10 Problem Qualifiers (1) premature rupture of membranes in third trimester
[2017-07-04] MEDS ORDERED: OXYTOCIN 30 UNIT in NS 500 ML IV SCH (05:15)
--- NOTE | 2017-07-04 07:40 | PREANESOB ---
Obstetric Pre-Anesthesia Info - General Info Proposed Procedure: Labor Epidural (Continuous) : 1 Para: 0 WILBUR: 07/28/17 Gestational Age: 36 week(s) and 3 day(s) - Info Status: Premature Monitors: External - Labor Status Cervical Dilation per last OB SVE: 2, 3 Station per last OB SVE: -2 Amniotic Fluid Color: Clear PIH: No Magnesium Sulfate in Use: No Indications for Labor Analgesia: Pain Control Labor Epidural: Proposed Anesthesia Allergies/Adverse Reactions: Allergy/AdvReac Type Severity Reaction Status Date / Time No Known Allergies Allergy Unverified 02/16/17 17:23 Home Medications: Medication Instructions Recorded Vit27&Calcium/Iron/FA 1 each PO DAILY 07/03/17 [ Rx 1 Tablet (RX)] Visit Medications: Generic Name Dose Route Start Last Admin Trade Name Freq PRN Reason Stop Dose Admin Ammonia (Aromatic Spirit) 1 each 07/03/17 12:55 Ammonia Aromatic IH 07/13/17 12:54 ONCE PRN Fainting Betamethasone Acet/Betameth SodPhos 12.5 mg 07/04/17 14:00 Celestone Im Syringe IM 07/04/17 14:01 ONCE@1400 ONE Ampicillin Sodium 1 gm/ 15 mls @ 60 mls/hr 07/03/17 17:00 07/04/17 05:33 Sterile Water IV 08/02/17 16:59 15 mls Q4H NISHA Administration Protocol Lactated Ringer's 1,000 mls @ 0 mls/hr 07/03/17 12:55 07/04/17 05:45 Lr IV 07/04/17 12:54 1,000 mls PRN PRN Administration SEE PROTOCOL CONDITIONS Protocol Per Protocol Oxytocin 20 unit/ Lactated 1,002 mls @ 150 mls/hr 07/03/17 12:55 Ringer's IV PRN PRN Post- bleeding Lactated Ringer's 500 mls @ 500 mls/hr 07/04/17 05:02 Lr IV 07/05/17 05:02 PRN PRN Maternal Hypotension Oxytocin 30 unit/ Sodium 503 mls @ 0 mls/hr 07/04/17 05:15 07/04/17 05:44 Chloride IV 12/31/17 05:14 503 mls CONT NISHA Administration Protocol Per Protocol Ibuprofen 600 mg 07/03/17 12:55 Motrin PO 12/30/17 12:54 Q6HRS PRN post , inflammation Magnesium Sulfate 454 gm 07/03/17 12:55 Epsom Salt TP 12/30/17 12:54 Q1H PRN perineal discomfort Misoprostol 800 - 1,000 mcg 07/03/17 12:55 Cytotec PO ONCE PRN Vaginal Atony/Bleeding Misoprostol 50 mcg 07/03/17 16:08 07/04/17 00:02 Cytotec PO 12/30/17 16:07 50 mcg Q4H PRN Administration cervical ripening [place] Oil 118 ml 07/03/17 12:55 Sweet Oil MISC 12/30/17 12:54 ONCE PRN perineal massage Terbutaline Sulfate 0.25 mg 07/03/17 12:55 Brethine IV 12/30/17 12:54 ONCE PRN Tachysystole Discontinued Medications Generic Name Dose Route Start Last Admin Trade Name Freq PRN Reason Stop Dose Admin Betamethasone Acet/Betameth SodPhos 12.5 mg 07/03/17 13:45 07/03/17 14:20 Celestone Im Syringe IM 07/03/17 13:46 12.5 mg ONCE ONE Administration Ampicillin Sodium 2 gm/ 25 mls @ 100 mls/hr 07/03/17 12:55 07/03/17 13:50 Sterile Water IV 07/03/17 13:09 25 mls ONCE ONE Administration Protocol Lidocaine HCl Confirm 07/03/17 17:24 Lidocaine Hcl 1% Administered 07/03/17 17:25 Dose 300 mg .ROUTE .STK-MED ONE Lidocaine HCl Confirm 07/03/17 17:25 Lidocaine Hcl 1% Administered 07/03/17 17:26 Dose 300 mg .ROUTE .STK-MED ONE Misoprostol Confirm 07/03/17 17:03 Cytotec Administered 07/03/17 17:04 Dose 50 mcg .ROUTE .STK-MED ONE Terbutaline Sulfate Confirm 07/03/17 17:24 Brethine Administered 07/03/17 17:25 Dose 1 mg .ROUTE .STK-MED ONE - Anesthesia History Response to Local Anesthetics: Normal Anesthesia & Operative History: No Prior Problems Family Anesthesia History: Not Applicable - Social History Substance Use/Abuse: Denies - Vital Signs Latest Vital Signs (Nursing): Reviewed - See Nursing Section Height/Weight (Nursing): Height 165.1 cm Weight 83.461 kg - Focused Exam Neck exam: FROM Mallampati Score: Class 2 Mouth exam: normal dental/mouth exam Labs: 07/03/17 13:50 Patient ABO/Rh O POSITIVE 07/03/17 13:50
[2017-07-04] MEDS ORDERED: fentanYL 4MCG/ML/BUP 0.0625% RTU 250 ML BAG EP ONE (07:53)
[2017-07-04] MEDS ORDERED: PHENYLEPHRINE HCL 100 MCG/ML SYR ONE (07:54)
[2017-07-04] MEDS ORDERED: BUPIVACAINE 0.25% 30 ML SDV ONE (07:54)
[2017-07-04] MEDS ORDERED: PHENYLEPHRINE HCL 100 MCG/ML SYR IVP PRN ×2 (08:44→19:46)
[2017-07-04] MEDS ORDERED: NALOXONE HCL 0.4 MG/ML INJ IVP PRN ×3 (08:44→19:46)
[2017-07-04] MEDS ORDERED: ONDANSETRON 4 MG/2 ML VIAL IVP PRN ×3 (08:44→19:46)
[2017-07-04] MEDS ORDERED: LR 500 ML IV SCH (09:00)
[2017-07-04] MEDS ORDERED: fentaNYL 4MCG/ML/BUP 0.0625% R 250 ML EP SCH (09:00)
--- NOTE | 2017-07-04 09:53 | POSTANESTH ---
Post Anesthetic Evaluation Cardiovascular Status: Normal, Stable, Similar to Pre-Op Cond Respiratory Status: Normal, Stable, Similar to Pre-op Cond. Level of Consciousness/Mental Status: Can Participate in Eval, Alert and Oriented Pain Control: Adequate, Prn Tx Ordered Nausea/Vomiting Control: Adequate, Prn Tx Ordered (Patient tolerated placement of labor epidural (moderately difficult); pain well controlled.)
--- NOTE | 2017-07-04 11:25 | OBPROG ---
Labor Progress Note Assessment/Plan: Assessment:doing well after the epidural contractions regular with the pitocin at 5 mu exam 4/75/-1 continued clear fluid vaginally ampicillin continues q 4 h unknown gbs betamethasone repeat at 1415 Plan:expectant management 07/04/17 11:23 Subjective/Intrapartum Course: Pt is becoming mildly uncomfortable with contractions. Still leaking clear fluid. Desires epidural eventually for pain control. 07/03/17 21:42 07/04/17 05:09 Pt more uncomfortable after the 2nd misoprostil was given around midnight. Contraction pain up to about a 4 of 10. Still leakin clear fluid. No other concerns. Objective: 07/03/17 13:50 Patient ABO/Rh O POSITIVE 07/03/17 13:50 - SVE Dilation (cm): 3, 4 Effacement (%): 75 Station: -1 Membranes: SROM Amniotic Fluid Color: Clear - Contraction Pattern Assessment Current Contraction Pattern: Regular, Irregular - FHR Assessment Kwon FHR (bpm): 125 FHR Pattern Variability: Moderate FHR Category: 2 - AP Antepartum Course: Antepartum course was complicated by hyperemesis gravidarum, which required numerous episodes of IV hydration. 07/03/17 21:40 - Physical Exam Estimated Weight: 2501-3400g Oxytocin Orders Assessment - Pre-Induction/Augmentation Assessment Gestational Age: 36 week(s) and 3 day(s) Estimated Weight: 2501-3400g ICD10 Worksheet Patient Problems: Problems Problem Status Onset premature rupture of membranes in third trimester Acute Hyperemesis gravidarum Acute
[2017-07-04] MEDS ORDERED: BETAMETHASONE IM SYRINGE IM ONE (14:00)
--- NOTE | 2017-07-04 14:40 | OBPROG ---
Labor Progress Note Assessment/Plan: Assessment:epidural working well for pain relief contractions regular at 8mu prolonged variable pitocin off and then to 4mu exam 5/90/-1 bloody fluid ampicillin continues q 4 h unknown gbs betamethasone repeat at 1415 iupc attempt x 3 blood x 2 working well with 3rd placement mvu 200 at 4mu caput with cervical assessment cat 2 fhr discussed possible csection just with response to labor and minimal progress Plan:expectant management/ discussed plan with patient and family consult dr. baron on poc 07/04/17 11:23 07/04/17 14:40 Subjective/Intrapartum Course: Pt is becoming mildly uncomfortable with contractions. Still leaking clear fluid. Desires epidural eventually for pain control. 07/03/17 21:42 07/04/17 05:09 Pt more uncomfortable after the 2nd misoprostil was given around midnight. Contraction pain up to about a 4 of 10. Still leakin clear fluid. No other concerns. 07/04/17 14:36 Doing well epidural working well for pain relief denies pain.. Unsure of adequecy of contractions will place IUPC. Objective: 07/03/17 13:50 Patient ABO/Rh O POSITIVE 07/03/17 13:50 - SVE Membranes: SROM Amniotic Fluid Color: Clear - Contraction Pattern Assessment Current Contraction Pattern: Regular, Irregular - FHR Assessment Kwon FHR (bpm): 130 FHR Pattern Variability: Moderate FHR Category: 2 - AP Antepartum Course: Antepartum course was complicated by hyperemesis gravidarum, which required numerous episodes of IV hydration. 07/03/17 21:40 - Physical Exam Estimated Weight: 2501-3400g Oxytocin Orders Assessment - Pre-Induction/Augmentation Assessment Gestational Age: 36 week(s) and 3 day(s) Estimated Weight: 2501-3400g ICD10 Worksheet Patient Problems: Problems Problem Status Onset premature rupture of membranes in third trimester Acute Hyperemesis gravidarum Acute
[2017-07-04] MEDS ORDERED: ACETAMINOPHEN 500 MG TAB PO ONE (14:46)
--- NOTE | 2017-07-04 18:36 | OBPROG ---
Labor Progress Note Assessment/Plan: Assessment:epidural working well for pain relief contractions regular at 8mu exam 5/90/-1 no change to vervix bloody fluid iupc attempt x 3 blood x 2 working well with 3rd placement caput with cervical assessment cat [address] Espino to room no change to cervix prep for c section ancef 2 gms ivpb before surgery Plan:plan for c section 07/04/17 11:23 07/04/17 14:40 07/04/17 18:34 Subjective/Intrapartum Course: Pt is becoming mildly uncomfortable with contractions. Still leaking clear fluid. Desires epidural eventually for pain control. 07/03/17 21:42 07/04/17 05:09 Pt more uncomfortable after the 2nd misoprostil was given around midnight. Contraction pain up to about a 4 of 10. Still leakin clear fluid. No other concerns. 07/04/17 14:36 Doing well epidural working well for pain relief denies pain.. Unsure of adequecy of contractions will place IUPC. Objective: 07/03/17 13:50 Patient ABO/Rh O POSITIVE 07/03/17 13:50 - SVE Dilation (cm): 5 Effacement (%): 90 Station: -1 Membranes: SROM Amniotic Fluid Color: Clear - Contraction Pattern Assessment Current Contraction Pattern: Regular, Irregular - FHR Assessment Kwon FHR (bpm): 125 FHR Pattern Variability: Moderate FHR Category: 2 - AP Antepartum Course: Antepartum course was complicated by hyperemesis gravidarum, which required numerous episodes of IV hydration. 07/03/17 21:40 - Physical Exam Estimated Weight: 2501-3400g Oxytocin Orders Assessment - Pre-Induction/Augmentation Assessment Gestational Age: 36 week(s) and 3 day(s) Estimated Weight: 2501-3400g ICD10 Worksheet Patient Problems: Problems Problem Status Onset premature rupture of membranes in third trimester Acute Hyperemesis gravidarum Acute
[2017-07-04] MEDS ORDERED: fentaNYL 100 MCG/2 ML INJ ONE (18:42)
[2017-07-04] MEDS ORDERED: morphINE PF 5 MG/10 ML INJ ONE (18:43)
[2017-07-04] MEDS ORDERED: ONDANSETRON 4 MG/2 ML VIAL ONE (18:43)
[2017-07-04] MEDS ORDERED: OXYTOCIN 100 UNITS/10 ML VIAL ONE (18:43)
[2017-07-04] MEDS ORDERED: LIDO/EPI 2% **for epidural** 20 ML SDV ONE ×2 (18:43)
[2017-07-04] MEDS ORDERED: PHENYLEPHRINE 10 MG/ML SDV ONE (18:43)
[2017-07-04] MEDS ORDERED: LIDOCAINE 2% 100 MG/5 ML SYR ONE (18:48)
[2017-07-04] MEDS ORDERED: ceFAZolin 2 GM/DEXTROSE 100 ML IV ONE (18:49)
--- NOTE | 2017-07-04 18:57 | PDCONSULT ---
Rn Dermatology Note: Maryuri Gonzalez CNM consulted with me regarding Nadiya's care and labor this afternoon. See prior notes for full description of her presentation and course thus far. Briefly, she is a 22 yo G1 at 36w4d who presented with PPROM without initial signs of PTL. She was treated with BMZ and prophylactic abx for GBS positive and induced in labor. This afternoon we have gotten to a time when Nadiya has been arrested at 5cm dilation for > 4 hrs with adequate ctx's by MVU/ IUPC. When her cervix did not change further with this most recent exam performed by Maryuri at 1830 I did have a long conversation with Nadiya and her family about her slow progress and options going forward. FHR tracing generally quite reassuring at this point, has been Category II throughout much of Stage I except for a prolonged variable decel hours ago which corrected with position changes and rare apparent late decelerations. Maryuri has felt that the baby - presumably smaller at 36 wks, is already having s/sx of caput at 5cm dilation and indeed a protracted course, diagnostic of arrest of dilation at this point. I did talk to them about options of continued labor, with the risk of distress. I offered that we can try to continue to titrate her Pitocin, but really we've had a largely adequate pattern and are not seeing cervical change. I recommended primary and she and her family agree. Risks discussed and consents signed in person. She has been getting Amp for GBS unknown, so we'll add a dose of Ancef prior to skin incision. PMH: alpha thalassemia carrier. FOC was tested and is negative. Pt is mixed - and . FOC is . Asthma as a child - has not used an inhaler in over a decade. PSH: none Soc: -/-/- since pos preg test. Per chart - hx of THC use prior to . Denies today. Had neg urine tox screen in first trimester. FamHx: noncontributory. MGF - HTN & dementia, MGM & MAunt with DM, brother in past year at age 19 - seizures and hx of drug abuse medications: vitamins labs: O pos, Ab screen neg, RPR - NR, HBsAG neg, HIV neg, Toxo IgG/IgM neg, pap neg, gonorrhea neg, chlamydia neg, AFP neg screen, NIPT/Innata neg, 1 hr GTT = 112, urine drug screen neg first trimester. h/h at 28 wk = 12.25/38.9, Non-Immune to Rubella. GBS pos Otherwise routine preop orders. Non-urgently to the OR. JM
[2017-07-04] MEDS ORDERED: MEPERIDINE 25 MG/ML SYR IVP PRN (19:46)
[2017-07-04] MEDS ORDERED: HYDROCODONE/APAP 5/325 TAB PO PRN (19:46)
[2017-07-04] MEDS ORDERED: fentaNYL 100 MCG/2 ML INJ IVP PRN (19:46)
[2017-07-04] MEDS ORDERED: HYDROmorphone HCL/NS 0.5 MG/ML SYR IVP PRN (19:46)
--- NOTE | 2017-07-04 20:10 | OBDEL ---
Info Type: Primary Presentation at Delivery: Vertex (Asynclitic with compound presentation, bilateral arms by face) L&D Analgesia/Anesthesia Type: Epidural GBS+: Yes (Ampicillin x many doses, Ancef prior to skin incision) Antibiotic Used for + GBS: Ampicillin Intrapartum Medications: Generic Name Dose Route Start Last Admin Trade Name Hiramq PRN Reason Stop Dose Admin Ampicillin Sodium 1 gm/ 15 mls @ 60 mls/hr 07/03/17 17:00 07/04/17 17:02 Sterile Water IV 08/02/17 16:59 15 mls Q4H NISHA Administration Protocol Oxytocin 30 unit/ Sodium 503 mls @ 0 mls/hr 07/04/17 05:15 07/04/17 05:44 Chloride IV 12/31/17 05:14 503 mls CONT NISHA Administration Protocol Per Protocol Misoprostol 50 mcg 07/03/17 16:08 07/04/17 00:02 Cytotec PO 12/30/17 16:07 50 mcg Q4H PRN Administration cervical ripening Discontinued Medications Generic Name Dose Route Start Last Admin Trade Name Armando PRN Reason Stop Dose Admin Acetaminophen 1,000 mg 07/04/17 14:46 07/04/17 14:50 Tylenol PO 07/04/17 14:47 1,000 mg ONCE ONE Administration Betamethasone Acet/Betameth SodPhos 12.5 mg 07/03/17 13:45 07/03/17 14:20 Celestone Im Syringe IM 07/03/17 13:46 12.5 mg ONCE ONE Administration Betamethasone Acet/Betameth SodPhos 12.5 mg 07/04/17 14:00 07/04/17 13:43 Celestone Im Syringe IM 07/04/17 14:01 12.5 mg ONCE@1400 ONE Administration Ampicillin Sodium 2 gm/ 25 mls @ 100 mls/hr 07/03/17 12:55 07/03/17 13:50 Sterile Water IV 07/03/17 13:09 25 mls ONCE ONE Administration Protocol Lactated Ringer's 1,000 mls @ 0 mls/hr 07/03/17 12:55 07/04/17 05:45 Lr IV 07/04/17 12:54 1,000 mls PRN PRN Administration SEE PROTOCOL CONDITIONS Protocol Per Protocol - Hospital Course Intrapartum: Pt is becoming mildly uncomfortable with contractions. Still leaking clear fluid. Desires epidural eventually for pain control. 07/03/17 21:42 07/04/17 05:09 Pt more uncomfortable after the 2nd misoprostil was given around midnight. Contraction pain up to about a 4 of 10. Still leakin clear fluid. No other concerns. 07/04/17 14:36 Doing well epidural working well for pain relief denies pain.. Unsure of adequecy of contractions will place IUPC. Indications for Delivery: SROM (PPROM at 36w3d, Arrest of dilation) Vaginal Delivery - Labor and Delivery Amniotic Fluid Color: Clear Operative Report - Delivery Pre-op Diagnoses: PPROM at 36w3d, Arrest of dilation at 5cm Post-op Diagnoses: Same, asynclitic/compound presentation History of Prior Section: No Nulliparous Prior to Delivery: Yes Indications for Current Section: Abnormal Lie, Arrest of Dilation Procedure: Unscheduled, Low Transverse Surgeon: Tin Vann Iron Worker: Sylwia Gonzalez Anesthesiologist: Renny Friend Complications: None Findings: Baby in asynclitic OT position with compound presentation with bilateral arms up by its face. Very tight-contracted pelvis. EBL: 700cc Cord Gases: Not sent. Data WILBUR: 07/28/17 Gestational Age: 36 week(s) and 4 day(s) Kwon Delivery Date: 07/04/17 Delivery Time: 19:30 Sex of : Female ICD10 Worksheet Patient Problems: Problems Problem Status Onset Arrest of dilation, delivered, current hospitalization Acute Positive GBS test Acute premature rupture of membranes in third trimester Acute Hyperemesis gravidarum Acute - ICD10 Problem Qualifiers (1) Arrest of dilation, delivered, current hospitalization (2) Positive GBS test
--- NOTE | 2017-07-04 20:14 | SUROPNOTE ---
[facility] Operative Report - Surgery Date of Operation: 07/04/17 Surgeon: Tin Vann Parent Educator: Maryuri Gonzalez CNM Anesthesiologist: Renny Friend MD Anesthesia: Epidural Pre-op Diagnosis: IUP at 36w4d, PPROM, Arrest of dilation at 5cm Post-op Diagnosis: Same, asynclitic/compound presentation Procedure: PLTCS Findings: Female fetus enountered in OT position, asynclitic, compound presentation, otherwise normal uterus, normal bilateral tubes and ovaries. Inf/Abcess present in the surg proc area at time of surgery?: No EBL: 700cc Complications: None Specimen(s): Placenta not sent, cord gasses not sent. Technique: The patient was taken to the OR where spinal was placed / epidural was dosed and anesthesia found to be adequate. The patient was then positioned supine with a leftward tilt and a time-out was performed. She was given weight- based antibiotics prior to skin incision. The abdomen was prepped and draped in normal sterile fashion. A Pfannenstiel skin incision was made with the scalpel and carried down to the fascia. The fascia was incised in the midline and the incision extended bilaterally sharply with scissors. The fascia was dissected off of the underlying rectus muscles superiorly and inferiorly also sharply using scissors. The rectus were in the midline and the peritoneum identified and entered bluntly without issue. The peritoneal incision was extended and the bladder blade was then placed. The vesicouterine junction was identified and a bladder flap created sharply and developed bluntly. A transverse incision was made with the scalpel in the lower uterine segment and extended with cephalad and caudad traction on the incision edges. The head was encountered and easily elevated out of the pelvis and delivered atraumatically, followed by the shoulders and body. The nose and mouth were bulb suctioned. We did wait for 60 seconds before clamping and cutting the cord and then the was handed to pediatric staff. Cord blood gasses were not sent and the placenta was not sent to pathology. The uterus was then exteriorized and carefully wiped of all debris. The uterus was closed in two layers - the first layer was running with 180 0-vloc and the second a vertical imbircating layer using 0-vicryl. The gutters were cleared of all clots. The uterine incision was reinspected and found to be hemostatic after placement of addiitonal figure of eight sutures of 3-0 vicryl. The uterus was then returned to the abdomen. The fascia was elevated and the rectus muscles and subcutaneous tissues were found to be hemostatic. The fascia was closed with a running 0-Vicryl - single suture. The subcutaneous tissues were irrigated and hemostasis obtained. The subcutaneous space was closed with interrupted sutures of 2-0 vicryl./ The skin was closed with 4-0 vloc undyed and then covered with Medipore dressing. The patient tolerated the procedure and was taken to recovery in stable condition. Lap, needle, sponge, and instrument count were announced as correct times two. I was present and scrubbed for the entire case.
--- NOTE | 2017-07-04 20:30 | POSTANESTH ---
Post Anesthetic Evaluation Cardiovascular Status: Normal, Stable Respiratory Status: Normal, Stable Level of Consciousness/Mental Status: Can Participate in Eval Pain Control: Adequate, Prn Tx Ordered Nausea/Vomiting Control: Adequate, Prn Tx Ordered Complications Possibly Related to Anesthesia: None Noted
[2017-07-04] MEDS ORDERED: PROMETHAZINE HCL 25 MG/ML INJ IVP PRN (22:04)
[2017-07-04] MEDS ORDERED: SIMETHICONE 80 MG TAB CHEW PO PRN (22:04)
[2017-07-04] MEDS ORDERED: ACETAMINOPHEN 325 MG TAB PO PRN (22:04)
[2017-07-04] MEDS: IBUPROFEN 600 MG TAB PO PRN (22:16)
[2017-07-04] MEDS: ceFAZolin 2 GM/SWFI 2 GM/20 ML SYR IVP ONE ×2 (22:26→23:38)
[2017-07-05] MEDS: KETOROLAC 30 MG/1 ML SDV IVP SCH ×4 (03:59→16:44)
--- NOTE | 2017-07-05 09:21 | OBPP ---
Progress Note Assessment/Plan: Assessment: 22 y/o s/p PLTCS at 36.4 weeks - PPROM and arrest of dilation at 5cm POD #1 Anemia- HCT this AM 29 Plan: Routine post op care Advance diet as tolerated Ibuprofen/hydrocodone for pain as needed DC carrillo and remove dressing at 24 hours post op Encourage increased activity as tolerated Ferrous sulfate BID 07/05/17 09:19 07/05/17 09:21 07/05/17 09:25 07/05/17 09:27 07/05/17 09:36 Subjective/ Course: 07/05/17 09:30 Patient is doing well this morning. Reports lochia to be light, pain controlled with IV medication. Sitting in chair and eating a regular diet for breakfast. is going well. Objective: 07/05/17 06:00 Patient ABO/Rh O POSITIVE 07/03/17 13:50 Temp Pulse Resp BP Pulse Ox 37.1 C 82 18 112/65 99 07/05/17 07:35 07/05/17 07:35 07/05/17 07:35 07/05/17 07:35 07/05/17 07:35 VSS Respirations unlabored Extremities with minimal edema Lochia scant Fundus firm Dressing dry/intact Pain well controlled with IV medication Hypoactive BSX4 quads - not passing gas yet Nipples intact Uterine Position/Fundal Height: At Umbilicus Uterine Tone: Firm (ABD dressing dry/intact) Physical Exam - Physical Exam EENT: PERRL/EOMI Neck: supple, normal inspection Respiratory: chest non-tender, lungs clear Cardiac/Chest: regular rate, rhythm Abdomen: hypoactive bowel sounds Extremities: normal range of motion Skin: normal color, warm/dry Neuro/Psych: alert, normal mood/affect, oriented x 3
[2017-07-05] MEDS: FERROUS SULFATE 325 MG TAB PO SCH ×2 (12:20→21:21)
[2017-07-05] MEDS: IBUPROFEN 600 MG TAB PO PRN ×2 (16:25→22:30)
[2017-07-05] MEDS: HYDROCODONE/APAP 5/325 TAB PO PRN (17:59)
[2017-07-06] MEDS: IBUPROFEN 600 MG TAB PO PRN ×4 (04:52→22:57)
[2017-07-06] MEDS: HYDROCODONE/APAP 5/325 TAB PO PRN ×3 (08:08→19:34)
[2017-07-06] MEDS: FERROUS SULFATE 325 MG TAB PO SCH ×2 (08:08→21:46)
[2017-07-06] MEDS: DOCUSATE SODIUM 100 MG CAP PO PRN ×2 (08:08→21:46)
--- NOTE | 2017-07-06 09:50 | OBPP ---
Progress Note Assessment/Plan: Assessment: 22yo s/p primary c/s POD#2 Anemia Plan: routine post op care cont / support cont iron and colace plan d/c home tomorrow 07/06/17 09:44 Subjective/ Course: 07/05/17 09:30 Patient is doing well this morning. Reports lochia to be light, pain controlled with IV medication. Sitting in chair and eating a regular diet for breakfast. is going well. 07/06/17 09:50 Pt doing well, she is ambulating without difficulty. She has had one void since catheter was removed. She reports min bleeding and only min pain with ambulation. She is . She has her mother present- who is very supportive. Patient is unsure the extent of FOB involvement. Objective: 07/05/17 06:00 Patient ABO/Rh O POSITIVE 07/03/17 13:50 Temp Pulse Resp BP Pulse Ox 36.1 C 88 16 112/76 96 07/06/17 08:00 07/06/17 08:00 07/06/17 08:00 07/06/17 08:00 07/06/17 08:00 Uterine Position/Fundal Height: Umbilicus -1, Midline Uterine Tone: Firm Physical Exam - Physical Exam Neck: supple Respiratory: lungs clear, normal breath sounds Cardiac/Chest: regular rate, rhythm Abdomen: normal bowel sounds, non-tender, soft, incision (healing well) Extremities: pedal edema Skin: normal color, warm/dry Neuro/Psych: alert, normal mood/affect, oriented x 3
[2017-07-06] MEDS: SENNOSIDES/DOCUSATE SODIUM TAB PO SCH ×2 (11:43→21:46)
--- NOTE | 2017-07-06 17:40 | ASMTCMCOM ---
CM Note CM Note Notes: Mom/Baby RN Toyin made referral for SWer to see Pt. Pt. is a 22-year-old woman who delivered a baby girl by at 2794 grams at 36 weeks gestation. Baby girl named "Jordan". Pt. had hyperemesis for duration of pregancy. Pt's mother Joan took care of her. Pt. w/ good care. Per notes, Pt. used THC prior to . semester tox screen was negative. SWer met w/ family in Pt's room today for some 30 minutes. Pt., Jordan, FOC Lam and Grandpiter Franco (Pt's mother) were present. Lam discussed his current struggles with severe anxiety, Bipolar disorder and a history of suicidal thoughts. Lam tearful at times during conversation. Lam states he is attending therapy and group through a "[facility]" outpatient program. [facility] is supportive and gave him a 24-hour crisis line for him to call if he is suicidal. Lam describes his anxiety as fixated on when he is away from his mother. Lam is [id number]. Lam states his mother does not encourage this behavior and Lam does not yet understand his anxiety - reportedly his mother does have some kind of chronic illness. Lam uses THC regularly and his clothing smells of THC smoke. Lam deliberately keeps his "smoking coat" in a sealed bag and does not wear it anywhere near [place]. Lam gazes at [place] with love and states he wants to be a good, involved father, but admits he is very scared. Provided support. Joan states she wants to be "the grandma" and does not want to interfere in their relationship or Lam's right to be a father to [place]inna. Joan did confront Lam about him not being present during Pt's . Lam states he is afraid to "mess things up" and that what he touches turns out poorly. Cheyenner overtly talked about safety around crying baby to avoid shaken baby syndrome. Instructed on how to walk away. After meeting as a family for some 30 minutes, Kim asked Lam and Joan to leave the room for a private talk w/ Pt. Spoke w/ Pt. for some ten minutes. Pt. states her mother Joan is very supportive and she is not sure where things will go with her relationship with Lam. Pt. states she knew about his history, but did not know that he felt suicidal often. Pt. states she is very bonded to baby Jordan, is breast feeding. States the pregancy was not planned and she got only 2 months after she and Lam began dating. Pt. states she doesn't think she will leave baby alone with Lam at this time. Cheyenner spoke w/ Pt. about gun safety - Lam's Dad is reportedly a police officer crime prevention. Pt. named Jordan after Pt's brother who unexpectedly after a head injury only one year ago. His name was "Mukund". Pt. states she has WIC and food stamps. Cheyenner offered referral to the [facility] program. Pt. does not want Cheyenner to refer at this time. SWer gave information about the program and encouraged Pt. to speak with sales mgr about it if she was interested. Plan is for Pt. and daughter Jordan to live with Joan in [place]. Lam ibanez lives in "[facility]" with his mother and his autistic 21-year-old brother whom he helped raise. Kim gave report to bedside RN. Date Signed: 07/06/2017 05:39 PM Electronically Signed By:Toyin Allan LCSW
[2017-07-07] MEDS: IBUPROFEN 600 MG TAB PO PRN ×3 (05:29→18:34)
[2017-07-07] MEDS: FERROUS SULFATE 325 MG TAB PO SCH ×2 (09:03→19:36)
[2017-07-07] MEDS: SENNOSIDES/DOCUSATE SODIUM TAB PO SCH ×2 (09:04→19:37)
[2017-07-07] MEDS: HYDROCODONE/APAP 5/325 TAB PO PRN (19:36)
[2017-07-07 20:09] VITALS: O2SAT 97
[2017-07-08] MEDS: IBUPROFEN 600 MG TAB PO PRN ×2 (00:35→05:52)
[2017-07-08] MEDS: FERROUS SULFATE 325 MG TAB PO SCH (09:30)
[2017-07-08] MEDS: SENNOSIDES/DOCUSATE SODIUM TAB PO SCH (09:54)
--- NOTE | 2017-07-08 11:21 | OBPP ---
Progress Note Assessment/Plan: Assessment: POD 4 s/p primary section for arrest of dilation Plan: d/c to boarder status, baby on bili lights. 07/08/17 11:18 Subjective/ Course: 07/05/17 09:30 Patient is doing well this morning. Reports lochia to be light, pain controlled with IV medication. Sitting in chair and eating a regular diet for breakfast. is going well. 07/06/17 09:50 Pt doing well, she is ambulating without difficulty. She has had one void since catheter was removed. She reports min bleeding and only min pain with ambulation. She is . She has her mother present- who is very supportive. Patient is unsure the extent of FOB involvement. 07/08/17 11:19 Pt doing well. states pain well controlled with ibu and last norco 13 hrs ago. bld is light. urinating fine. working on pumping and getting milk - working on latching with rucker. amb well. will be d/c to boarder status. Objective: 07/05/17 06:00 Patient ABO/Rh O POSITIVE 07/03/17 13:50 Temp Pulse Resp BP Pulse Ox 36.7 C 82 18 113/74 97 07/08/17 08:54 07/08/17 08:54 07/08/17 08:54 07/08/17 08:54 07/07/17 20:00 Uterine Position/Fundal Height: Umbilicus -2 Uterine Tone: Firm Physical Exam - Physical Exam Abdomen: non-tender, soft, other (incision CDI, lochia small) Extremities: non-tender, pedal edema (minimal) Neuro/Psych: alert, normal mood/affect (blunt affect but has been throughout per other care-givers)
[2017-07-08] MEDS ORDERED: MEASLES,MUMPS&RUBELLA VACC/PF 0.5 ML VIAL SC ONE ×2 (11:22→15:30)
--- NOTE | 2017-07-08 11:26 | OBGCSDC ---
General Delivery Information - General Info : 1 Para: 1 Abortions: 0 Type: Primary L&D Analgesia/Anesthesia Type: Epidural, Spinal Admission Date: 07/03/17 Labs: Patient ABO/Rh O POSITIVE 07/03/17 13:50 Hct 29.0 % (38.0-47.0) L 07/05/17 06:00 - Hospital Course Antepartum: Antepartum course was complicated by hyperemesis gravidarum, which required numerous episodes of IV hydration. 07/03/17 21:40 Intrapartum: Pt is becoming mildly uncomfortable with contractions. Still leaking clear fluid. Desires epidural eventually for pain control. 07/03/17 21:42 07/04/17 05:09 Pt more uncomfortable after the 2nd misoprostil was given around midnight. Contraction pain up to about a 4 of 10. Still leakin clear fluid. No other concerns. 07/04/17 14:36 Doing well epidural working well for pain relief denies pain.. Unsure of adequecy of contractions will place IUPC. : 07/05/17 09:30 Patient is doing well this morning. Reports lochia to be light, pain controlled with IV medication. Sitting in chair and eating a regular diet for breakfast. is going well. 07/06/17 09:50 Pt doing well, she is ambulating without difficulty. She has had one void since catheter was removed. She reports min bleeding and only min pain with ambulation. She is . She has her mother present- who is very supportive. Patient is unsure the extent of FOB involvement. 07/08/17 11:19 Pt doing well. states pain well controlled with ibu and last norco 13 hrs ago. bld is light. urinating fine. working on pumping and getting milk - working on latching with rucker. amb well. will be d/c to boarder status. Vaginal - Diagnosis Amniotic Fluid Color: Clear - Delivery Providers Surgeon: Tin Vann Pipe Layer Helper: Sylwia Gonzalez Anesthesiologist: Renny Friend - Delivery Indications for Current Section: Abnormal Lie, Arrest of Dilation Surgical Procedures: Unscheduled, Low Transverse Intra-op Complications: None EBL: 700cc Data WILBUR: 07/28/17 Gestational Age: 37 week(s) and 1 day(s) Kwon Delivery Date: 07/04/17 Delivery Time: 19:29 Sex of : Female Score (1 Min): 9 Score (5 Min): 9 Discharge Information - Discharge Information Prescriptions: Hydrocodone/APAP 5/325 [[place] 5/325 (*)] 1 - 2 tab PO Q4HRS PRN #10 tab PRN Reason: Pain, Moderate Condition: Good Instruction/Follow Up: See Instruction Sheet, Two Weeks, Four Weeks, Six Weeks
[2017-07-08 18:36] VITALS: BP 114/70; PULSE 78; RESP 16; TEMP 98.5
== END 2017-07-08 16:00 | disposition home or self-care (01) | DRG 766 ==
LOC: FLD 11:03 → OBSVTOIN 11:03 → FLD 12:39 → FOB 07-04 22:35
PROVIDERS: ADMIT Hospitalist; ATTEND Obstetrics & Gynecology
PROC: 3E0E73Z Introduction of Anti-inflammatory into Products of Conception, Via Natural or Artificial Opening (ICD-10-PCS; principal; 2017-07-04)
PROC: 10D00Z1 Extraction of Products of Conception, Low, Open Approach (ICD-10-PCS; principal; 2017-07-04)
DX: O42.013 Preterm premature rupture of membranes, onset of labor within 24 hours of rupture, third trimester (principal); O62.2 Other uterine inertia; Z37.0 Single live birth; Z3A.36 36 weeks gestation of pregnancy; Z87.891 Personal history of nicotine dependence
CPT/HCPCS: G0378; J0290; J0690; J0702; J1885; J2001; J2274; J2370; J2405; J2590; J3010; J3105